=== PATIENT | female | born 1995 | race Caucasian/White ===

== ENCOUNTER 2024-10-15 16:29 | Emergency (ER) | payer OTHER ==
[2024-10-15 18:05] LABS: Specific Gravity > 1.030 (1.005-1.030)
[2024-10-15 18:06] LABS: Specific Gravity > 1.030 (1.005-1.030); Urine Bacteria <20 /HPF (<20); Urine Bilirubin NEGATIVE (Negative); Urine Blood 1+ (Negative); Urine Clarity Extremely Turbid (Clear); Urine Color Yellow (Yellow); Urine Crystals Unidentified Few /HPF (None Seen); Urine Culture Reflex Order REFLEXED; Urine Glucose NEGATIVE (Negative); Urine Ketones NEGATIVE (Negative); Urine Microscopic Reflex YN ORDER UMIC; Urine Mucus 1+ /HPF (None Seen); Urine Nitrite NEGATIVE (Negative); Urine Protein 1+ (Negative); Urine Urobilinogen Normal (Normal); Urine WBC >50 /HPF (<5); Urine pH 5.5 (5.0-7.0)
--- NOTE | 2024-10-15 18:37 | RAD REPORT ---
EXAM:OB Limited . CLINICAL HISTORY: with abdominal pain. Abd pain;Abd cramping, TECHNIQUE: Limited OB ultrasound performed. FINDINGS: There is a single live intrauterine gestation noted. Estimated gestational age is 16 weeks 4 days, ED D 03/28/2025. heart rate is normal, 154 BPM. Placenta is posterior and grade 1. Amniotic fluid volume is qualitatively normal. Placenta is closed and long measuring 4 cm. IMPRESSION: Limited examination demonstrating single live intrauterine gestation in cephalic presentation as deta iled. No acute finding is seen.
--- NOTE | 2024-10-15 20:01 | ER ---
Nurse's Notes [facility] Name: Valery Richard Age: 29 yrs Sex: Female : 1995 Arrival Date: 10/15/2024 Time: 16:29 Bed DX3 Private MD: Diagnosis: Mild hyperemesis gravidarum;UTI/ Urinary tract infection, site not specified;Vomiting;16 weeks gestation of Presentation: 10/15 17:16 Chief complaint: Patient states: is approx 16 weeks , has been vomiting every iw days, since yesterday it got worse, feels light headed, lower back pain Spouse and/or significant other states: also has a headache. 17:17 Coronavirus screen: At this time, the client does not indicate any symptoms associated iw with coronavirus-19. Ebola Screen: No symptoms or risks identified at this time. Initial Sepsis Screen: Does the patient meet any 2 criteria? No. Patient's initial sepsis screen is negative. Does the patient have a suspected source of infection? No. Patient's initial sepsis screen is negative. Risk Assessment: Do you want to hurt yourself or someone else? Patient reports no desire to harm self or others. Onset of symptoms was October 14, 2024. 17:17 Method Of Arrival: Ambulatory iw 17:17 Acuity: MALACHI 3 iw Triage Assessment: 21:54 General: Appears in no apparent distress. Behavior is calm, cooperative, appropriate vc1 for age. Pain: Complains of pain in back and stomach. EENT: No deficits noted. No signs and/or symptoms were reported regarding the EENT system. Neuro: Level of Consciousness is awake, alert, obeys commands, Oriented to person, place, time, situation, Appropriate for age. Cardiovascular: Capillary refill < 3 seconds Patient's skin is warm and dry. Respiratory: Airway is patent Respiratory effort is even, unlabored, Respiratory pattern is regular, symmetrical, Breath sounds are clear bilaterally. GI: Reports upper abdominal pain, nausea. 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 - Infectious Disease History:: Denies. - Social history:: Smoking status: Patient denies any tobacco usage or history of. Screenin:52 [facility] ED Fall Risk Assessment (Adult) History of falling in the last 3 months, vc1 including since admission No falls in past 3 months (0 pts) Confusion or Disorientation No (0 pts) Intoxicated or Sedated No (0 pts) Impaired Gait No (0 pts) Mobility Assist Device Used No (0 pt) Altered Elimination No (0 pt) Score/Fall Risk Level 0 - 2 = Low Risk Oriented to surroundings, Maintained a safe environment, Educated pt \T\ family on fall prevention, incl call for assistance when getting out of bed, Hourly rounding (assess needs \T\ fall precautionary measures) done. Abuse screen: Denies threats or abuse. Nutritional screening: No deficits noted. Tuberculosis screening: No symptoms or risk factors identified. Vital Signs: 17:17 BP 109 / 78; Pulse 75; Resp 16; Temp 97.9; Pulse Ox 98% on R/A; Weight 78.47 kg; Height iw 5 ft. 6 in. ; Pain 9/10; 17:17 Body Mass Index 27.92 (78.47 kg, 167.64 cm) iw 17:17 Pain Scale: Adult iw ED Course: 16:33 Patient arrived in ED. cj3 17:18 Triage completed. iw 17:33 Omkar Rojas MD is Attending Physician. delia 18:13 US OB Limited In Process Unspecified. EDMS 20:05 Initial lab(s) drawn, by me, sent to lab. Inserted saline lock: 20 gauge in left rk3 antecubital area, using aseptic technique. Blood collected. Flushed with 10 mL NS. 21:51 Rosa Sanchez, RN is Primary Nurse. vc1 21:52 Arm band placed on right wrist. vc1 21:53 Patient has correct armband on for positive identification. Bed in low position. Call vc1 light in reach. Provided Education on: f/u with OB. 21:54 No provider procedures requiring assistance completed. IV discontinued, intact, vc1 bleeding controlled, No redness/swelling at site. Pressure dressing applied. Administered Medications: 20:36 Drug: Ondansetron IVP 4 mg IVP once; over 2 minutes Route: IVP; Site: left antecubital; vc1 21:51 Follow up: Response: No adverse reaction; Marked relief of symptoms vc1 20:36 Drug: Rocephin IV 2 grams IV at per protocol once; Given slow IV push per pharmarcy vc1 instructions Route: IV; Rate: per protocol; Site: left antecubital; 21:51 Follow up: IV Status: Completed infusion; IV Intake: 50ml vc1 20:36 Drug: Cefdinir PO 300 mg PO once Route: PO; vc1 21:51 Follow up: Response: No adverse reaction vc1 20:36 Drug: Nitrofurantoin PO 100 mg PO once; administer with food Route: PO; vc1 21:51 Follow up: Response: No adverse reaction vc1 20:37 Drug: NS 0.9% IV 1000 ml IV at 1 bolus Per protocol; to be given as a bolus over 60 vc1 minutes Route: IV; Rate: 1 bolus; Site: left antecubital; 21:51 Follow up: IV Status: Completed infusion; IV Intake: 1000ml vc1 20:37 Drug: diphenhydrAMINE IVP 25 mg IVP once Route: IVP; Site: left antecubital; vc1 21:51 Follow up: Response: No adverse reaction; Marked relief of symptoms vc1 20:37 Drug: Acetaminophen PO 1000 mg PO once Route: PO; vc1 21:51 Follow up: Response: No adverse reaction; Marked relief of symptoms vc1 Medication: 21:52 VIS not applicable for this client. vc1 Intake: 21:51 IV: 50ml; Total: 50ml. vc1 21:51 IV: 1000ml; Total: 1050ml. vc1 Outcome: 20:00 Discharge ordered by MD. lin 21:54 Discharged to home ambulatory, vc1 21:54 Condition: stable 21:54 Discharge instructions given to patient, Instructed on discharge instructions, follow up and referral plans. medication usage, Demonstrated understanding of instructions, follow-up care, medications, Prescriptions given X 4, 21:55 Patient left the ED. vc1 Signatures: Dispatcher [employer] EDNY Omkar Rojas MD MD cha Williams, Irene, RN RN iw Rosa Sanchez RN RN vc1 Rajesh Luna rk3 Kristen Gonzales cj3 Corrections: (The following items were deleted from the chart) 17:18 17:16 Chief complaint: Patient states: is approx 16 weeks , has been iw iw 17:18 17:16 Chief complaint: Patient states: is approx 16 weeks , has been vomiting iw every days, since yesterday it got worse, feels light headed, lower back pain iw 17:18 17:17 BP 109 / 78; Pulse 75bpm; Resp 16bpm; Pulse Ox 98% RA; Temp 97.9F; 78.47 kg; iw Height 5 ft. 6 in.; BMI: 27.9; iw
--- NOTE | 2024-10-15 20:01 | EDPHYS ---
Physician Documentation [facility] Name: Valery Richard Age: 29 yrs Sex: Female : 1995 Arrival Date: 10/15/2024 Time: 16:29 Bed DX3 Private MD: ED Physician Omkar Rojas HPI: 10/15 19:55 This 29 yrs old Female presents to ER via Ambulatory with complaints of delia Nausea/Vomiting, Lower Back Pain, Headache, 16 wks . 19:55 The patient presents to the emergency department with nausea, vomiting, described as delia bilious. Onset: The symptoms/episode began/occurred 3 day(s) ago. Possible causes: , UTI. The symptoms are aggravated by nothing. The symptoms are alleviated by nothing. Associated signs and symptoms: Pertinent positives: nausea, vomiting. Severity of symptoms: At their worst the symptoms were mild moderate in the emergency department the symptoms have improved moderately. The patient has experienced similar episodes in the past, multiple times. 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 - Infectious Disease History:: Denies. - Social history:: Smoking status: Patient denies any tobacco usage or history of. ROS: 19:57 Constitutional: Negative for fever, chills, and weight loss, Eyes: Negative for injury, delia pain, redness, and discharge, ENT: Negative for injury, pain, and discharge, Neck: Negative for injury, pain, and swelling, Cardiovascular: Negative for chest pain, palpitations, and edema, Respiratory: Negative for shortness of breath, cough, wheezing, and pleuritic chest pain, Abdomen/GI: Negative for abdominal pain, nausea, vomiting, diarrhea, and constipation, Back: Negative for injury and pain, : Negative for injury, bleeding, discharge, and swelling, MS/Extremity: Negative for injury and deformity, Skin: Negative for injury, rash, and discoloration, Neuro: Negative for headache, weakness, numbness, tingling, and seizure, Psych: Negative for depression, anxiety, suicide ideation, homicidal ideation, and hallucinations, Allergy/Immunology: Negative for hives, rash, and allergies, Endocrine: Negative for neck swelling, polydipsia, polyuria, polyphagia, and marked weight changes, Hematologic/Lymphatic: Negative for swollen nodes, abnormal bleeding, and unusual bruising, 19:57 Abdomen/GI: Positive for abdominal distension, Exam: 19:57 Constitutional: This is a well developed, well nourished patient who is awake, alert, delia and in no acute distress. Head/Face: Normocephalic, atraumatic. Eyes: Pupils equal round and reactive to light, extra-ocular motions intact. Lids and lashes normal. Conjunctiva and sclera are non-icteric and not injected. Cornea within normal limits. Periorbital areas with no swelling, redness, or edema. ENT: Nares patent. No nasal discharge, no septal abnormalities noted. Tympanic membranes are normal and external auditory canals are clear. Oropharynx with no redness, swelling, or masses, exudates, or evidence of obstruction, uvula midline. Mucous membranes moist. Neck: Trachea midline, no thyromegaly or masses palpated, and no cervical lymphadenopathy. Supple, full range of motion without nuchal rigidity, or vertebral point tenderness. No Meningismus. Chest/axilla: Normal chest wall appearance and motion. Nontender with no deformity. No lesions are appreciated. Cardiovascular: Regular rate and rhythm with a normal S1 and S2. No gallops, murmurs, or rubs. Normal PMI, no JVD. No pulse deficits. Respiratory: Lungs have equal breath sounds bilaterally, clear to auscultation and percussion. No rales, rhonchi or wheezes noted. No increased work of breathing, no retractions or nasal flaring. Abdomen/GI: Soft, non-tender, with normal bowel sounds. No distension or tympany. No guarding or rebound. No evidence of tenderness throughout. Back: No spinal tenderness. No costovertebral tenderness. Full range of motion. Skin: Warm, dry with normal turgor. Normal color with no rashes, no lesions, and no evidence of cellulitis. MS/ Extremity: Pulses equal, no cyanosis. Neurovascular intact. Full, normal range of motion., bilateral aka Neuro: Awake and alert, GCS 15, oriented to person, place, time, and situation. Cranial nerves II-XII grossly intact. Motor strength 5/5 in all extremities. Sensory grossly intact. Cerebellar exam normal. Normal gait. Psych: Awake, alert, with orientation to person, place and time. Behavior, mood, and affect are within normal limits. 19:57 Musculoskeletal/extremity: DVT Exam: No signs of deep vein thrombosis. no pain, no swelling, no tenderness, negative Homans' sign noted on exam, no appreciated bluish discoloration, no erythema, no increased warmth, Vital Signs: 17:17 BP 109 / 78; Pulse 75; Resp 16; Temp 97.9; Pulse Ox 98% on R/A; Weight 78.47 kg; Height iw 5 ft. 6 in. ; Pain 9/10; 17:17 Body Mass Index 27.92 (78.47 kg, 167.64 cm) iw 17:17 Pain Scale: Adult iw MDM: 17:33 Medical Screening Exam initiated delia 19:58 Differential diagnosis: Nonspecific abd pain, pancreatitis, viral gastroenteritis, delia gastroenteritis. Data reviewed: vital signs, nurses notes, lab test result(s), radiologic studies, ultrasound. Consideration of Admission/Observation Escalation of care including admission/observation considered. I considered the following discharge prescriptions or medication management in the emergency department Medications were administered in the Emergency Department. See MAR. Independent interpretation of the following test(s) in the Emergency Department Radiology Department Ultrasound: My interpretation is PREG USG 16 WEEKS. Test considered but Not performed: MRI: NO ABD USG. Care significantly affected by the following chronic conditions: NONE. 10/15 17:32 Order name: Test, Urine; Complete Time: 19:29 10/15 17:32 Order name: Urinalysis w/ reflexes; Complete Time: 19:29 10/15 17:34 Order name: CBC with Diff; Complete Time: 20:31 [facility] 10/15 17:34 Order name: CMP; Complete Time: 20:44 [facility] 10/15 17:34 Order name: Lipase; Complete Time: 20:44 [facility] 10/15 18:12 Order name: Urine Culture EDNE 10/15 17:34 Order name: US OB Limited; Complete Time: 19:29 [facility] Administered Medications: 20:36 Drug: Ondansetron IVP 4 mg IVP once; over 2 minutes Route: IVP; Site: left antecubital; vc1 21:51 Follow up: Response: No adverse reaction; Marked relief of symptoms vc1 20:36 Drug: Rocephin IV 2 grams IV at per protocol once; Given slow IV push per pharmarcy vc1 instructions Route: IV; Rate: per protocol; Site: left antecubital; 21:51 Follow up: IV Status: Completed infusion; IV Intake: 50ml vc1 20:36 Drug: Cefdinir PO 300 mg PO once Route: PO; vc1 21:51 Follow up: Response: No adverse reaction vc1 20:36 Drug: Nitrofurantoin PO 100 mg PO once; administer with food Route: PO; vc1 21:51 Follow up: Response: No adverse reaction vc1 20:37 Drug: NS 0.9% IV 1000 ml IV at 1 bolus Per protocol; to be given as a bolus over 60 vc1 minutes Route: IV; Rate: 1 bolus; Site: left antecubital; 21:51 Follow up: IV Status: Completed infusion; IV Intake: 1000ml vc1 20:37 Drug: diphenhydrAMINE IVP 25 mg IVP once Route: IVP; Site: left antecubital; vc1 21:51 Follow up: Response: No adverse reaction; Marked relief of symptoms vc1 20:37 Drug: Acetaminophen PO 1000 mg PO once Route: PO; vc1 21:51 Follow up: Response: No adverse reaction; Marked relief of symptoms vc1 Disposition Summary: 10/15/24 20:00 Discharge Ordered Notes: Location: Home delia Problem: new delia Symptoms: have improved delia Condition: Stable delia Diagnosis - Mild hyperemesis gravidarum delia - UTI/ Urinary tract infection, site not specified delia - Vomiting delia - 16 weeks gestation of delia Followup: delia - With: Private Physician - When: 1 - 2 days - Reason: Recheck today's complaints, Continuance of care, Re-evaluation by your physician Discharge Instructions: - Discharge Summary Sheet delia - Abdominal Pain During delia - Dysuria delia - Hyperemesis Gravidarum delia - Care delia - Urinary Tract Infection, Adult delia - Urinary Tract Infection, Adult, [id number] delia - Second Trimester of delia - Second Trimester of , [id number] delia Forms: - Medication Reconciliation Form delia - Antibiotic Education delia - Prescription Opioid Use delia - Patient Portal Instructions delia - Leadership Thank You Letter delia Prescriptions: - cefdinir 300 mg Oral capsule - take 1 capsule ORAL route every 12 hours; 14 capsule; Refills: 0, Product delia Selection Permitted - ondansetron 4 mg Oral Tablet,disintegrating - take 1 tablet ORAL route every 6 hours PRN NV; 20 tablet; Refills: 0, Product delia Selection Permitted - promethazine 25 mg Oral tablet - take 1 tablet ORAL route every 6 hours As needed PRN INTRACTABLE NV; 20 delia tablet; Refills: 0, Product Selection Permitted - Macrobid 100 mg Oral Capsule - take 1 capsule ORAL route every 12 hours for 7 days; 14 capsule; Refills: 0, [facility] Product Selection Permitted Signatures: Dispatcher [employer] EDOmkar Swain MD MD cha Williams, Irene RN RN iw Rosa Sanchez RN RN vc1 Corrections: (The following items were deleted from the chart) 17:32 17:32 Test, Urine+UC.LAB.BRZ ordered. EDMS EDMS 17:32 17:32 Urinalysis+U.LAB.BRZ ordered. EDMS EDMS 17:35 17:35 OB Limited+US.RAD.BRZ ordered. EDMS EDMS
[2024-10-15] MEDS ORDERED: ONDANSETRON 4 MG/2 ML VIAL ONE (20:20)
[2024-10-15] MEDS ORDERED: NITROFURAN MACRO 100 MG CAP PO ONE (20:20)
[2024-10-15] MEDS ORDERED: CEFDINIR 300 MG CAP PO ONE (20:20)
[2024-10-15] MEDS ORDERED: ACETAMINOPHEN 500 MG TAB ONE (20:20)
[2024-10-15] MEDS ORDERED: CEFTRIAXONE 2000 MG/VIAL ONE (20:20)
[2024-10-15] MEDS ORDERED: DIPHENHYDRAMINE 50 MG/ML VIAL ONE (20:20)
[2024-10-15] MEDS ORDERED: NA CHLORIDE 0.9% 100 ML ONE (20:21)
[2024-10-15] MEDS ORDERED: NA CHLORIDE 0.9% 1,000 ML ONE (20:21)
[2024-10-15 20:22] LABS: Absolute Eosinophils 0.1 K/uL (0-0.5); Absolute Lymphocytes (CBC) 2.9 K/uL (0.7-4.9); Absolute Monocytes 0.6 K/uL (0.1-1.3); Absolute Neutrophil 6.1 K/uL (1.8-8.0); Basophils % 0.3 % (0-1.3); Eosinophils % 0.7 % (0-4.4); Hematocrit 37.8 % (36.0-45.0); Hemoglobin 13.5 g/dL (12.0-15.0); MCH 30.8 pg (27.0-35.0); MCHC 35.7 g/dL (32.0-36.0); MCV 86.2 fL (80-100); MPV 8.8 fL (7.6-11.3); Monocytes % 6.3 % (3.3-12.3); Neutrophils % 62.7 % (41.7-73.7); Platelets 396 thou/uL (152-406); RBC Red Blood Cell Count 4.39 M/uL (3.86-4.86); Red Cell Distribution Width 13.8 % (12.1-15.2)
[2024-10-15 20:40] LABS: Albumin 3.2 g/dL (3.4-5.0); Albumin/Globulin Ratio 0.7 (1.1-1.8); Anion Gap 8.8 mEq/L (5.0-15.0); Bilirubin Total 0.2 mg/dL (0.2-1.0); Globulin 4.4 g/dL (2.3-3.5); Potassium 3.8 mEq/L (3.5-5.1); Protein, Total 7.6 g/dL (6.4-8.2)
[2024-10-15 22:57] VITALS: BP 109/78; TEMP 97.9; O2SAT 98
== END 2024-10-15 21:55 | disposition home or self-care (01) ==
LOC: ER 16:29
DX: O21.0 Mild hyperemesis gravidarum (principal); O23.42 Unspecified infection of urinary tract in pregnancy, second trimester; N39.0 Urinary tract infection, site not specified; Z3A.16 16 weeks gestation of pregnancy
CPT/HCPCS: 36415; 76815; 80053; 81001; 81025; 83690; 85025; 87086; 87088; J0696; J1200; J2405; J7030